=== PATIENT | male | born 1975 | race Caucasian/White ===

== ENCOUNTER 2020-04-29 11:22 | Emergency (ER) | payer SELFPAY ==
[2020-04-29 11:26] VITALS: BP 144/87; PULSE 109; RESP 16; TEMP 36.5; O2SAT 100
--- NOTE | 2020-04-29 12:09 | ED.BACK ---
HPI - Back Pain/Injury General Chief Complaint: Back Pain/Injury Stated Complaint: lower back pain Time Seen by Provider: 04/29/20 11:57 Source: patient and RN notes reviewed Mode of arrival: ambulatory Limitations: no limitations History of Present Illness HPI Narrative: Patient presents today complaining of left-sided low back pain. States he was cleaning out a cooler at work, twisted, and felt a sharp pain in his back. Pain radiates to the left buttock. Injury occurred approximately 36 hours ago. Denies numbness or tingling in the extremities or genitals. Denies any loss of bowel or bladder control. Denies any history of chronic back pain. Currently rates his pain 5/10, which increases with movement. He has been taking ibuprofen without relief. MD elicited complaint: back injury Related Data Home Medications Medication Instructions Recorded Confirmed bupropion HCl 150 mg PO QAM 04/29/20 04/29/20 lisinopril 10 mg PO DAILY 04/29/20 04/29/20 venlafaxine 37.5 mg PO DAILY 04/29/20 04/29/20 Allergies Allergy/AdvReac Type Severity Reaction Status Date / Time No Known Allergies Allergy Verified 04/29/20 11:35 Review of Systems Review of Systems: Narrative: CONSTITUTIONAL: Denies body aches, fever, chills, or sweats. EYES: Denies visual changes, redness, or discharge. ENT: Denies rhinorrhea, congestion, sore throat, or otalgia. CARDIOVASCULAR: Denies chest pain, palpitations, or edema. RESPIRATORY: Denies cough or dyspnea. GASTROINTESTINAL: Denies abdominal pain, nausea, vomiting, or diarrhea. GENITOURINARY: Denies dysuria or hematuria. SKIN: Denies rash, itching, or wounds. MUSCULOSKELETAL: Denies joint pain, or myalgia. +Left low back pain NEUROLOGIC: Denies headache, numbness, tingling, or weakness. PSYCH: Denies depression or anxiety. PMFSH Social History Social History Smoking status: Heavy tobacco smoker Alcohol intake: never Comments At time of signature, I have reviewed and agree with nursing past medical, surgical, social and family history unless otherwise noted. Please see nursing chart for further information. There is no relevant family history pertinent to the presenting complaint Exam Narrative: Exam Narrative: GENERAL: Well-appearing, well-nourished, and in no acute distress. HEAD: Normocephalic, atraumatic. EYES: EOMI. No redness or drainage. Conjunctivae normal. ENT: Mucous membranes pink and moist. NECK: Normal AROM. CHEST: No respiratory distress. MUSCULOSKELETAL: No bony tenderness of the thoracic or lumbar spine. Left lower lumbar paraspinal muscle tenderness, extending to the left SI joint. Distal sensation intact. Saddle sensation intact. Capillary refill normal. Posterior tibial pulses normal. Foot push and pulls equal and strong.Color normal bilaterally. EXTREMITIES: Normal range of motion. No edema. SKIN: Warm, dry, no rash. Capillary refill normal. Normal skin turgor. NEURO: No focal deficits. Alert and oriented x3. Gait steady. PSYCH: Normal affect. No signs of depression or anxiety. Course Vital Signs Vital signs: Vital Signs Temperature 97.7 F 04/29/20 11:26 Pulse Rate 109 H 04/29/20 11:26 Respiratory Rate 16 04/29/20 11:26 Blood Pressure 144/87 H 04/29/20 11:26 Pulse Oximetry 100 04/29/20 11:26 Temperature 97.7 F 04/29/20 11:26 Pulse Rate 109 H 04/29/20 11:26 Respiratory Rate 16 04/29/20 11:26 Blood Pressure 144/87 H 04/29/20 11:26 Pulse Oximetry 100 04/29/20 11:26 Reviewed. Pt has been instructed to follow up with his PCP regarding his elevated blood pressure today. MDM - Back Pain/Injury Differential Diagnosis Differential diagnosis: Likely lumbar radiculopathy, strain of lumbar region and thoracic back pain Critical Care Time Critical Care Time Critical Care Time: No Discharge Plan Discharge Clinical Impression: Strain of lumbar region Qualifiers: Encounter type: initial encounter Qualified Code(s)
== END 2020-04-29 12:18 | disposition home or self-care (01) ==
PROVIDERS: Emergency Provider Nurse Practitioner; PCP Nurse Practitioner Family
DX: S39.012A Strain of muscle, fascia and tendon of lower back, initial encounter (principal); X50.0XXA Overexertion from strenuous movement or load, initial encounter; F17.200 Nicotine dependence, unspecified, uncomplicated; I10 Essential (primary) hypertension; F32.9 Major depressive disorder, single episode, unspecified
CPT/HCPCS: 99213; G0463

== ENCOUNTER 2020-11-01 02:13 | Inpatient (IN) | payer SELFPAY ==
[2020-11-01] VITALS (15 sets, daily range): BP systolic 116–159; BP diastolic 61–127; PULSE 78–110; RESP 12–29; TEMP 36.3–36.9; O2SAT 94–100; BMI 23.3
--- NOTE | 2020-11-01 02:03 | PM.IMHP ---
H&P: HPI History of Present Illness Date/Time: 11/01/20 02:03 Chief Complaint: Sore throat Narrative: 45-year-old male with past medical history of depression and hypertension who presented to the ER at [facility] due to that he had initially presented to [facility] ER on the due to a sore throat. He reports that he had been having sore throat for 4 days. Initially the pain started on the left side of his neck and his left neck became swollen. Then over the next 24 hours he began having pain around the posterior portion of his neck into his right neck. Subsequently his right neck became extensively more swollen than his left. He has not had anything to eat and only minimal sips of fluid did drink in the last 4 days. He has severe difficulty swallowing even his secretions. He presented to [facility] ER on the and had a rapid strep test that was negative. He was subsequently discharged home a told he had general sore throat and was discharged with antibiotics and liquid lidocaine for pain. He arrived to [facility] ER again on 10/31/2020 with worsening of his sore throat and worsening of the swelling in his neck especially in the right side of his neck. He reports that the pain was at 8/10 in intensity at its worst. It was accompanied by pain in the back of his neck. He had subjective fevers. When he arrived to the outside ER his temperature was 99.7?. They checked a COVID swab and a influenza swab that was negative. He had blood cultures obtained that were sent. He had a CBC with a white count of 26,000, hemoglobin 15.5 platelet count 142215 with 21% neutrophils. Electrolyte panel was unremarkable with sodium of 138 potassium 4.6 chloride 99 CO2 27 BUN 16 creatinine 0.6 glucose 112 lactic acid was normal at 1.2 PT was 12.9 INR 1.[address] of the neck demonstrated an bilateral tonsillitis and tonsillar abscesses with peritonsillar inflammation and edema, right tonsillar abscess measuring 2.5 x 2.1 cm smaller left tonsillar abscess 1.3 x 0.7 cm. Tonsillar enlargement results in moderate to severe oral pharyngeal airway narrowing. There is also diffuse pharyngeal wall thickening and mucosal enhancement compatible with pharyngitis. Small amount of fluid in the retro pharyngeal space likely edema and inflammation. No loculated retropharyngeal abscess identified additional edema and inflammation extending into the peritonsillar soft tissues bilateral right greater than left including extension of inflammation about the right submandibular gland. The patient received 2 doses of Unasyn at the outside ER. He received Solu-Medrol at 4:50 p.m. and a dose of Decadron at 9:39 p.m.. He also received tranexamic acid, racemic epi, IV Benadryl, and 2 L normal saline. Evidently the ER physician the outside hospital tried to admit the patient to their ICU but and they could not admit him to the ICU as they did not have any ICU beds available. They contacted [facility] where the ENT resident refused to accept the patient unless the patient was intubated. This information was not passed on to me in report. The ER physician felt the patient did not need to be intubated as his condition was improving and so decided to call multiple hospitals in the area until the called our hospital where she talked to Dr. Peters (ENT) and Dr. Cabrera (sliver former) who agreed to accept the patient. When the patient arrived to the ICU patient was having difficulty managing his secretions. While I was in the room the patient coughed and spit up material numerous times. After multiple attempts he was able to switch while away small amount of oral secretions. He denies shortness of breath. Review of Systems Review of Systems: Narrative: 12 systems were reviewed with pertinent positives and negatives per HPI. Except as documented in the HPI, all other systems were reviewed and are negative. [facility] Past Medical History Medical History (Updated
[2020-11-01] MEDS: SODIUM CHLORIDE 0.9% IV 1,000 ML 100 ML IV CONT ×2 (02:31→10:32)
[2020-11-01] MEDS: MORPHINE SULFATE (*CRX) 2 MG/ML INJ IV PUSH ×4 (02:56→23:00)
--- NOTE | 2020-11-01 03:20 | ADMGEN ---
This patient, Elmo Pisano, was admitted to Intensive Care Unit-8 on 11/01/20 at 0155. Patient/family oriented to hospital policies and general routines including ID bracelet, bed and alarms, visiting hours, pain management, procedures, bathroom and other care routines, personal items, smoking policy, room service/diet, and visiting hours. Information on how to activate the Rapid Response Team has been discussed. Patient/Family are encouraged to report perceived risks to care and to ask questions if they do not understand what they are told or what they should do.
[2020-11-01] MEDS: methylPREDNISolone SOD SUCC 125 MG VIAL IV PUSH ×3 (04:18→17:53)
[2020-11-01 04:48] LABS: Hematocrit 40.5 % (42.0-52.0); Hemoglobin 13.2 g/dL (14.0-18.0); Mean Corpuscular HGB Conc 32.6 g/dl (32-36); Mean Corpuscular Hemoglobin 27.5 pg (26-34); Mean Corpuscular Volume 84.4 fl (80-100); Mean Platelet Volume 9.9 fl (7.4-10.4); Platelet Count Result 296 k/mm3 (150-375); White Blood Count 18.8 K/mm3 (4.5-10.0)
[2020-11-01 05:02] LABS: Anion Gap 8 mmol/L (8-16); Blood Urea Nitrogen 16 mg/dL (9-20); Calcium 8.6 mg/dL (8.4-10.2); Carbon Dioxide 27 mmol/L (22-30); Chloride 107 mmol/L (98-107); Estimated CRCL calculation 135 ml/min; Estimated Glomerular Filt Rate > 60; Glucose 151 mg/dL (75-110); Sodium 142 mmol/L (137-145)
[2020-11-01] MEDS: AMPICILLIN SULB 3 GM/NS 100 ML 3 GM/100 ML VIAL IVPB ×3 (06:03→17:58)
--- NOTE | 2020-11-01 11:06 | WPDCN ---
Assessment and Plan Assessment and plan (1) Parapharyngeal abscess: Code(s): J39.0 - Retropharyngeal and parapharyngeal abscess Status: Acute Assessment and Plan: the patient has by pharyngitis/deep neck space infections. The most concerning spaces the right parapharyngeal space. I will return this afternoon to perform flexible laryngoscopy and ensure the airways appropriate /adequate for transfer to the floor. I would then recommend transfer to the floor in observation for 24 more hours. If the patient fails to improve over the next 24 hours I would recommend a contrasted CT of tomorrow Saturday. The patient is okay for diet at this time is I do not anticipate operative intervention in the next 24 hours. Please continue IV antibiotics at this time. (2) Peritonsillar abscess: Code(s): J36 - Peritonsillar abscess Status: Acute HPI Data of Consult Date/Time: 11/01/20 11:06 Requesting Physician: William Juan MD Primary Care Provider: Keisha Guadarrama, DIAL BRUSHER Consult Narrative Narrative: Elmo Pisano is a 45 year old male With a current pharyngeal / neck infection. Patient reports feeling ill for approximately 1 week progressing over the past 24 hours. He was transferred from [place] with a contrasted CT demonstrating bilateral peritonsillar abscesses. As well as extension of the right peritonsillar abscess into the right parapharyngeal space and bilateral neck inflammation /fat stranding. Previous white count 26 currently 18. The patient reports feeling much improved over the past 24 hours. Currently receiving IV antibiotics as well as steroids. Review of Systems Constitutional: Constitutional: Reports as per HPI ENT: Reports as per HPI, Reports dysphagia and Reports odynophagia [facility] Past Medical History Medical History (Updated 11/01/20 @ 11:09 by Silas Peters MD) Depression Essential hypertension Surgical History Surgical History (Updated 11/01/20 @ 04:04 by Salina Robin DO) No pertinent past surgical history Family History Family History (Updated 11/01/20 @ 04:05 by Salina Robin DO) Father , Age 49 Acute myocardial infarction Mother Unknown family medical history Social History Social History (Updated 11/01/20 @ 04:07 by Salina Robin DO) Social History: He lives with his 21 years. They have 2 sons 1 of which deliver the home. He has smoked 2 packs per day since he was 15 years old. He drinks a 5th of hard liquor each weekend. He occasionally uses marijuana. He works at [employer]. Smoking packs per day: 2 Smoking cigarettes per day: 40.0 Years smoked: 30 Smoking pack-years: 60.00 Smoking status: Current every day smoker Tobacco type: cigarettes Alcohol intake: current Drinks per week: 1 Substance use: current Substance use type: marijuana Spiritual care concerns: No Meds Home Medications and Allergies Home Medications Medication Instructions Recorded Confirmed Type bupropion HCl 150 mg PO QAM 04/29/20 11/01/20 History lisinopril 10 mg PO DAILY 04/29/20 11/01/20 History albuterol sulfate 2 puff INHALATION BID PRN 11/01/20 11/01/20 History Allergies Allergy/AdvReac Type Severity Reaction Status Date / Time No Known Allergies Allergy Verified 04/29/20 11:35 Vital Signs Vital Signs - 24 hr 11/01/20 02:01 11/01/20 02:44 11/01/20 03:36 Temperature 36.9 C Pulse Rate 96 100 97 Respiratory Rate 18 21 H 14 Blood Pressure 126/82 Pulse Oximetry 97 97 98 11/01/20 04:00 11/01/20 06:00 11/01/20 06:01 Temperature 36.9 C Pulse Rate 94 90 86 Respiratory Rate 13 15 Blood Pressure 116/73 152/61 H Pulse Oximetry 100 94 11/01/20 08:00 11/01/20 10:00 Temperature 36.3 C L Pulse Rate 98 85 Respiratory Rate 29 H 17 Blood Pressure 121/88 116/65 Pulse Oximetry 97 99 Exam HENMT: Other: The patient's oral examination as well as to
--- NOTE | 2020-11-01 12:40 | WPDCNINT ---
Assessment and Plan Assessment and plan (1) Peritonsillar abscess: Code(s): J36 - Peritonsillar abscess Status: Acute Assessment and Plan: Patient will be continued on Unasyn 3 g q.6 hours scheduled. Will continue scheduled IV Solu-Medrol. Dr. Peters has evaluate the patient appreciated input. He did a flexible laryngoscope at bedside and found significant airway swelling and abscess in the epiglottic area. He recommended the patient remain in the ICU overnight, with repeat laryngeal scope in a.m. depending the results of that procedure will determine if the patient goes to surgery. He recommends the patient have a regular diet until after evaluation in the a.m.. (2) Parapharyngeal abscess: Code(s): J39.0 - Retropharyngeal and parapharyngeal abscess Status: Acute Assessment and Plan: Plan as discussed above. (3) Sepsis: Qualifiers: Sepsis type: sepsis due to unspecified organism Sepsis acute organ dysfunction status: without acute organ dysfunction Qualified Code(s): A41.9 - Sepsis, unspecified organism Code(s): A41.9 - Sepsis, unspecified organism Status: Acute Assessment and Plan: Present on admission with leukocytosis tachycardia and peritonsillar abscess. Patient remains mildly tachycardic but leukocytosis is improving. Antibiotics will be continued. Blood cultures are pending. Additional Plan The patient's case was discussed with hospitalist and ENT. The patient was updated as to clinical course and plan of care. 35 minutes spent in critical care activities. Due to a high probability of clinically significant, life threatening deterioration, the patient required my highest level of preparedness to intervene emergently and I personally spent this critical care time directly and personally managing the patient. This critical care time included obtaining a history; examining the patient; pulse oximetry; ordering and review of studies; arranging urgent treatment with development of a management plan; evaluation of patient's response to treatment; frequent reassessment; and discussions with other providers. It was exclusive of separately billable procedures and treating other patients and teaching time. Please see Assessment and Plan section and the rest of the note for further information on patient assessment and treatment. Automatic Machine Attendant Consult Note Consult date: 11/01/20 Time Seen: 11:00 HPI: Elmo Pisano is a 45 year old male with a past medical history of depression and hypertensionwho presented to the ER at [facility] due to that he had initially presented to [facility] ER on the due to a sore throat. He reports that he had been having sore throat for 4 days. Initially, the pain started on the left side of his neck and then the next day the right side of his neck started to swell over the next 24 hours. Currently the right side of his neck is much more swollen than his left. He has not had anything to eat and only minimal sips of fluid did drink in the last 4 days. He has severe difficulty swallowing even his secretions. He presented to [facility] ER on the and had a rapid strep test that was negative. He was subsequently discharged home a told he had general sore throat and was discharged with antibiotics and liquid lidocaine for pain. He arrived to [facility] ER again on 10/31/2020 with worsening of his sore throat and worsening of the swelling. He reports that the pain was at 8/10 in intensity at its worst. It was accompanied by pain in the back of his neck. He had subjective fevers. When he arrived to the outside ER his temperature was 99.7?. They checked a COVID swab and a influenza swab that was negative. He had blood cultures obtained that were sent. He had a CBC with a white count of 26,00. CT of the soft tissues of the neck demonstrated an bilateral tonsillitis and tonsillar abscesses with peritonsillar inflamm
--- NOTE | 2020-11-01 13:13 | WPDPROCEDUR ---
Procedures Laryngoscopy Sedation/Analgesia: other ( Afrin and lidocaine) Technique: indirect nasal laryngoscopy Complications: none Post-procedure exam: awake, alert Laryngoscopy Comments: patient had bilaterally normal sinonasal passages normal nasopharyngeal region the pharyngeal examination was concerning and significant for significant right-sided edema there is a vallecular cyst /collection of purulence as well as epiglottic edema the laryngeal exam and hypopharyngeal examination is completely normal
--- NOTE | 2020-11-01 17:15 | PM.IMPN ---
Progress Note: A&P Assessment and Plan (1) Peritonsillar abscess: Code(s): J36 - Peritonsillar abscess Status: Acute Assessment and Plan: Patient presented multiple times due to continued throat pain. CT of the neck performed showing bilateral tonsillitis and tonsillar abscesses with peritonsillar inflammation and edema, right tonsillar abscess measuring 2.5 x 2.1 cm with smaller left tonsillar abscess 1.3 x 0.7 cm. Tonsillar enlargement results in moderate to severe oral pharyngeal airway narrowing. Patient was transferred to our facility. He was started on Unasyn 3 g q.6 hours scheduled and scheduled IV Solu-Medrol. Dr. Peters has evaluate the patient and appreciate his input. He did a flexible laryngoscope at bedside today and found right-sided pharyngeal edema, vallecular cyst versus collection of purulence as well as epiglottic edema. Patient toelrating clear liquid diet and has been weaned off O2. Contineu to monitor in ICU overnight with plans for repeat laryngeal scope in a.m. Depending on the results of that procedure will determine if the patient goes to surgery. (2) Parapharyngeal abscess: Code(s): J39.0 - Retropharyngeal and parapharyngeal abscess Status: Acute Assessment and Plan: Plan as discussed above. (3) Sepsis: Qualifiers: Sepsis acute organ dysfunction status: without acute organ dysfunction Sepsis type: sepsis due to unspecified organism Qualified Code(s): A41.9 - Sepsis, unspecified organism Code(s): A41.9 - Sepsis, unspecified organism Status: Acute Assessment and Plan: Present on admission with leukocytosis and tachycardia related to the peritonsillar abscess. Patient remains mildly tachycardic but leukocytosis is improving. BCx pending. Contineu IV abx and steroids. (4) Essential hypertension: Code(s): I10 - Essential (primary) hypertension Status: Inactive Assessment and Plan: Patient's blood pressure was reviewed on 11/01 Blood pressure remains mostly well controlled. Lisinopril on hiold for now. (5) Depression: Code(s): F32.9 - Major depressive disorder, single episode, unspecified Status: Inactive Assessment and Plan: Mood stable. Continue to hold bupropion. (6) DVT prophylaxis: Code(s): Z29.9 - Encounter for prophylactic measures, unspecified Status: Acute Assessment and Plan: SCDs Subjective Date/time seen: 11/01/20 17:15 Interval history: 45yo male transferred from an OSH for peritonsillar abscess. Neck swelling much better today. Toelrating liquid diet. Feels warm. Denies feeling SOB. Exam Narrative: Exam Narrative: AF 98.1 131/83 90 12 97% 2L Gen - NARD HEENT - tonsillar erythema Neck - tender and swollen right>left submandibular glands. Chest - CTA bilaterally, nml RR CV - RRR S1/S2 Abd - Soft, NT/ND, Positive BS Ext - No pedal edema Neuro - Alert and oriented. Nonfocal exam. Psych - Nml mood and affect Skin - Warm and dry Objective Data Vital Signs Vital Signs: Vital Signs - 24 hr 11/01/20 02:01 11/01/20 02:44 11/01/20 03:36 Temperature 98.5 F Pulse Rate 96 100 97 Respiratory Rate 18 21 H 14 Blood Pressure 126/82 Pulse Oximetry 97 97 98 11/01/20 04:00 11/01/20 06:00 11/01/20 06:01 Temperature 98.5 F Pulse Rate 94 90 86 Respiratory Rate 13 15 Blood Pressure 116/73 152/61 H Pulse Oximetry 100 94 11/01/20 08:00 11/01/20 10:00 11/01/20 12:00 Temperature 97.3 F L 98.0 F Pulse Rate 98 85 110 H Respiratory Rate 29 H 17 18 Blood Pressure 121/88 116/65 128/77 Pulse Oximetry 97 99 98 11/01/20 14:00 11/01/20 16:00 Temperature 98.1 F Pulse Rate 82 90 Respiratory Rate 13 12 Blood Pressure 159/127 H 131/83 Pulse Oximetry 99 97 Intake/Output Intake/Output: Intake & Output 10/29/20 10/30/20 10/31/20 11/01/20 23:59 23:59 23:59 23:59 Intake Total 1970 Output Tot
[2020-11-01] MEDS: SODIUM CHLORIDE 0.9% IV 1,000 ML 70 ML IV CONT (17:51)
[2020-11-02] VITALS (10 sets, daily range): BP systolic 113–139; BP diastolic 74–88; PULSE 72–101; RESP 10–19; TEMP 36.3–36.9; O2SAT 95–100
[2020-11-02] MEDS: AMPICILLIN SULB 3 GM/NS 100 ML 3 GM/100 ML VIAL IVPB ×4 (00:02→18:22)
[2020-11-02] MEDS: methylPREDNISolone SOD SUCC 125 MG VIAL IV PUSH ×2 (00:03→05:36)
[2020-11-02 05:33] LABS: Basophils Percent Auto 0.1 % (0.2-1.2); Hematocrit 39.2 % (42.0-52.0); Hemoglobin 12.8 g/dL (14.0-18.0); Immature Granulocyte Absolute 0.18 K/mm3 (0.00-0.031); Immature Granulocyte Percent A 0.8 % (0-0.5); Lymphocytes Absolute Auto 1.34 K/mm3 (0.9-3.2); Lymphocytes Percent Auto 5.9 % (18.3-44.2); Mean Corpuscular HGB Conc 32.7 g/dl (32-36); Mean Corpuscular Hemoglobin 27.3 pg (26-34); Mean Corpuscular Volume 83.6 fl (80-100); Mean Platelet Volume 10.2 fl (7.4-10.4); Monocytes Absolute Auto 0.9 K/mm3 (0.1-0.6); Monocytes Percent Auto 3.9 % (2.6-8.5); Neutrophils Absolute Auto 20.2 K/mm3 (1.3-6.7); Neutrophils Percent Auto 89.3 % (45.5-73.1); Platelet Count Result 337 k/mm3 (150-375); Red Blood Count 4.69 M/mm3 (4.6-6.20); Red Cell Distribution Width 13.8 % (11.5-14.5); White Blood Count 22.6 K/mm3 (4.5-10.0)
[2020-11-02 05:59] LABS: Albumin Level 3.4 g/dL (3.5-5.1); Anion Gap 4 mmol/L (8-16); Blood Urea Nitrogen 17 mg/dL (9-20); Calcium 8.4 mg/dL (8.4-10.2); Carbon Dioxide 30 mmol/L (22-30); Chloride 108 mmol/L (98-107); Estimated CRCL calculation 159 ml/min; Estimated Glomerular Filt Rate > 60; Glucose 156 mg/dL (75-110); Magnesium 2.2 mg/dL (1.6-2.3); Phosphorus 3.9 mg/dL (2.5-4.5); Potassium 4.4 mmol/L (3.4-5.0); Sodium 142 mmol/L (137-145)
--- NOTE | 2020-11-02 09:07 | WPDINTPN ---
Progress Note: A&P Assessment and Plan (1) Peritonsillar abscess: Code(s): J36 - Peritonsillar abscess Status: Acute Assessment and Plan: CT of the neck which was done in outside facility showing bilateral tonsillitis and tonsillar abscesses with peritonsillar inflammation and edema, right tonsillar abscess measuring 2.5 x 2.1 cm with smaller left tonsillar abscess 1.3 x 0.7 cm. Tonsillar enlargement results in moderate to severe oral pharyngeal airway narrowing. Continue Unasyn at current dose for now. Follow cultures. ENT Dr. Peters has evaluate the patient and appreciate his input. He did a flexible laryngoscope at bedside today and found right-sided pharyngeal edema, vallecular cyst versus collection of purulence as well as epiglottic edema. He has been re-evaluated at the bedside today by ENT service and has found decreasing edema. Recommended to stop steroid. Patient tolerating clear liquid diet. May potentially advanced sometime later today. (2) Parapharyngeal abscess: Code(s): J39.0 - Retropharyngeal and parapharyngeal abscess Status: Acute Assessment and Plan: Plan as discussed above. (3) Sepsis: Qualifiers: Sepsis acute organ dysfunction status: without acute organ dysfunction Sepsis type: sepsis due to unspecified organism Qualified Code(s): A41.9 - Sepsis, unspecified organism Code(s): A41.9 - Sepsis, unspecified organism Status: Acute Assessment and Plan: Present on admission with leukocytosis and tachycardia related to the peritonsillar abscess. BCx pending. Contineu IV abx and steroids. (4) Essential hypertension: Code(s): I10 - Essential (primary) hypertension Status: Inactive Assessment and Plan: Blood pressure remains mostly well controlled. Lisinopril on hold for now. (5) Depression: Code(s): F32.9 - Major depressive disorder, single episode, unspecified Status: Inactive Assessment and Plan: Mood stable. Continue to hold bupropion. (6) DVT prophylaxis: Code(s): Z29.9 - Encounter for prophylactic measures, unspecified Status: Acute Assessment and Plan: SCDs Additional Plan The patient's case was discussed with hospitalist and ENT. The patient was updated as to clinical course and plan of care. He will be downgraded to floor/IMU status later today. Full code Subjective Date/time seen: 11/02/20 09:07 He is feeling much better with decreased pain. He is able to tolerate full liquid diet and wants to eat solid food. He denied have any significant shortness of breath. He is able to swallow without any difficulty and is not having any drooling of saliva. ENT has evaluated him at the bedside and upper airway inspection is showing decrease in edema. Recommended to stop steroid. Denied have any fever and chills. WBC count is trending up but likely as a result of steroid. Interval history: 45yo male transferred from an OSH for peritonsillar abscess. Review of Systems Review of Systems: All systems reviewed & are unremarkable except as noted in HPI and below Exam Narrative: Exam Narrative: AF 98.1 131/83 90 12 97% 2L Gen - NARD HEENT - tonsillar erythema Neck - tender and swollen right>left submandibular glands. Chest - CTA bilaterally, nml RR CV - RRR S1/S2 Abd - Soft, NT/ND, Positive BS Ext - No pedal edema Neuro - Alert and oriented. Nonfocal exam. Psych - Nml mood and affect Skin - Warm and dry HENMT: Other: His neck exam is consistent with bilateral edema right greater than left with some pain to palpation. Overall no overt fluctuance is identified. Objective Data Vital Signs Vital Signs: Vital Signs - 24 hr 11/01/20 10:00 11/01/20 12:00 11/01/20 14:00 Temperature 36.7 C Pulse Rate 85 110 H 82 Respiratory Rate 17 18 13 Blood Pressure 116/65 128/77 159/127 H Pulse Oximetry 99 98 99
--- NOTE | 2020-11-02 09:25 | PM.PNGS ---
Progress Note: A&P Assessment and Plan (1) Peritonsillar abscess: Code(s): J36 - Peritonsillar abscess Status: Acute Assessment and Plan: clinically the patient appears to be improving. The fiberoptic examination was significant for pharyngeal edema and epiglottic edema with a vallecular collection of purulence and/or cyst. Overall the fiberoptic examination is improving. Given the patient's clinical improvement he he could be observed on the floor if okay per ICU. I would recommend continued IV antibiotics. Would discontinue steroids. I would recommend a CBC tomorrow morning. Should the patient not improve drastically or should the CBC not improve I would recommend contrasted scan of the neck to Look for any occult abscess which may be present. I would also recommended speech therapy consult to increase the patient's diet. If the patient worsens in anyway clinically I would recommend restarting steroids and obtaining a CT with contrast of the neck. (2) Parapharyngeal abscess: Code(s): J39.0 - Retropharyngeal and parapharyngeal abscess Status: Acute Subjective Subjective Date/Time Seen: 11/02/20 09:25 patient reports overall feeling better this a.m.. Continues to report neck pain mostly right-sided. White count increased from 18-22 overnight. Exam Neck: Other: Overall improving appearance of neck decreasing right-sided edema increased mobility no fluctuance her edema which is palpable. All the laryngeal framework muscles and glands are palpable. Oropharynx is normal tonsils are normal floor mouth is soft Objective Data Vital Signs Vital Signs: Vital Signs - 24 hr 11/01/20 10:00 11/01/20 12:00 11/01/20 14:00 Temperature 36.7 C Pulse Rate 85 110 H 82 Respiratory Rate 17 18 13 Blood Pressure 116/65 128/77 159/127 H Pulse Oximetry 99 98 99 11/01/20 16:00 11/01/20 18:00 11/01/20 19:30 Temperature 36.7 C Pulse Rate 89 103 H 97 Respiratory Rate 12 12 15 Blood Pressure 131/83 122/80 Pulse Oximetry 97 96 99 11/01/20 20:00 11/01/20 22:00 11/02/20 00:00 Temperature 36.7 C 36.9 C Pulse Rate 101 H 88 101 H Respiratory Rate 16 13 17 Blood Pressure 138/76 118/76 135/88 Pulse Oximetry 97 100 98 11/02/20 00:38 11/02/20 02:00 11/02/20 03:36 Temperature Pulse Rate 77 72 82 Respiratory Rate 13 13 19 Blood Pressure 119/84 Pulse Oximetry 100 97 98 11/02/20 04:00 11/02/20 06:00 11/02/20 08:00 Temperature 36.5 C 36.3 C L Pulse Rate 77 73 81 Respiratory Rate 15 12 10 L Blood Pressure 119/75 113/76 130/88 Pulse Oximetry 96 95 97 11/02/20 09:25 Temperature Pulse Rate 101 H Respiratory Rate Blood Pressure Pulse Oximetry Intake/Output Intake/Output: Intake & Output 10/30/20 10/31/20 11/01/20 11/02/20 23:59 23:59 23:59 23:59 Intake Total 4360 1270 Output Total 1900 1200 Balance 2460 70 Meds/Results Medications: Active Medications Generic Name Dose Route Start Last Admin Trade Name Freq PRN Reason Stop Dose Admin Acetaminophen 650 mg 11/01/20 17:37 Acetaminophen Elixir 325 Mg/10.15 Ml Udc PO Q6H PRN Pain 1 - 3 or Fever Sodium Chloride 1,000 mls @ 70 mls/hr 11/01/20 02:15 11/01/20 17:51 Normal Saline Iv IV CONT 70 mls/hr .[id number] PRASHANT Administration Ampicillin Sodium/Sulbactam Sodium 3 gm in 100 mls @ 200 mls/hr 11/01/20 06:00 11/02/20 06:06 Unasyn 3 Gm/Ns 100 Ml IVPB Infused Q6HR PRASHANT Infusion Morphine Sulfate 2 mg 11/01/20 02:13 11/01/20 23:00 Morphine Sulfate (*Crx) 2 Mg/Ml Inj IV PUSH 2 mg Q4H PRN Administration Pain Rated 7-10 Ondansetron HCl 4 mg 11/01/20 02:13 Ondansetron Inj 4 Mg/2 Ml Vial IV PUSH Q6H PRN Nausea And Vomiting Labs Labs: Laboratory Results - last 24 hr 11/02/20 11/02/20 04:24 04:24 WBC 22.6 H RBC 4.69 Hgb 12.8 L Hct 39.2 L MCV 83.6 MCH 27.3 MCHC 32.7 RDW 13.8 Plt Count 337 MPV 10.2 Immatur
--- NOTE | 2020-11-02 09:28 | WPDPROCEDUR ---
Procedures Laryngoscopy Laryngoscopy Comments: Afrin lidocaine were applied to the right nasal passage. The scope 3.4 mm flexible scope was passed. The exam was significant for parapharyngeal edema as well as epiglottic edema mild erythema no purulence seen other than a vallecular cyst which could also represent a collection purulence. Overall the exam is somewhat improved from yesterday's flexible fiberoptic examination.
--- NOTE | 2020-11-02 10:33 | PM.IMPN ---
Progress Note: A&P Assessment and Plan (1) Peritonsillar abscess: Code(s): J36 - Peritonsillar abscess Status: Acute Assessment and Plan: Patient presented multiple times due to continued throat pain to the OSH. CT of the neck performed showing bilateral tonsillitis and tonsillar abscesses with peritonsillar inflammation and edema, right tonsillar abscess measuring 2.5 x 2.1 cm with smaller left tonsillar abscess 1.3 x 0.7 cm. Tonsillar enlargement results in moderate to severe oral pharyngeal airway narrowing. Patient was transferred to our facility. He was started on Unasyn 3 g q.6 hours scheduled and scheduled IV Solu-Medrol. Dr. Peters has evaluate the patient and appreciate his input. He did a flexible laryngoscope at bedside 11/01 and found right-sided pharyngeal edema, vallecular cyst versus collection of purulence as well as epiglottic edema. Repeat scope today showing improvement. Discussed with Dr Peters. Plan to advance diet. Steroids stopped. Will stop IV fluids. Okay to move out of ICU. He plans to repeat scope in the morning. (2) Parapharyngeal abscess: Code(s): J39.0 - Retropharyngeal and parapharyngeal abscess Status: Acute Assessment and Plan: Plan as discussed above. (3) Sepsis: Qualifiers: Sepsis acute organ dysfunction status: without acute organ dysfunction Sepsis type: sepsis due to unspecified organism Qualified Code(s): A41.9 - Sepsis, unspecified organism Code(s): A41.9 - Sepsis, unspecified organism Status: Acute Assessment and Plan: Present on admission with leukocytosis and tachycardia related to the peritonsillar abscess. Symptoms improving. WBC higher but felt related to the steroids. BCx pending. Continue IV abx; steroids stopped. (4) Essential hypertension: Code(s): I10 - Essential (primary) hypertension Status: Inactive Assessment and Plan: Patient's blood pressure was reviewed on 11/02 Blood pressure remains well controlled. Will resume lisinopril (5) Depression: Code(s): F32.9 - Major depressive disorder, single episode, unspecified Status: Inactive Assessment and Plan: Mood stable. Okay to resume bupropion. (6) Tobacco abuse: Code(s): Z72.0 - Tobacco use Status: Acute Assessment and Plan: Patient was educated about the benefits of smoking cessation. (7) DVT prophylaxis: Code(s): Z29.9 - Encounter for prophylactic measures, unspecified Status: Acute Assessment and Plan: SCDs Subjective Date/time seen: 11/02/20 10:33 Interval history: 45yo male transferred from an OSH for peritonsillar abscess. No problems overnight. Odynophagia is improved. Neck pain is improved as well. Slept well. No chest pain. Exam Narrative: Exam Narrative: AF 97.4 130/88 101 10 97% ra Gen - NARD HEENT - no significnat oropharyngeal erythema Neck - right>left submandibular glands less tender and less edema Chest - CTA bilaterally, nml RR CV - RRR S1/S2; tele showing no significant dysrhythmias Abd - Soft, NT/ND, Positive BS Ext - No pedal edema Neuro - Alert and oriented. Nonfocal exam. Psych - Nml mood and affect Skin - Warm and dry Objective Data Vital Signs Vital Signs: Vital Signs - 24 hr 11/01/20 12:00 11/01/20 14:00 11/01/20 16:00 Temperature 98.0 F 98.1 F Pulse Rate 110 H 82 89 Respiratory Rate 18 13 12 Blood Pressure 128/77 159/127 H 131/83 Pulse Oximetry 98 99 97 11/01/20 18:00 11/01/20 19:30 11/01/20 20:00 Temperature 98.0 F Pulse Rate 103 H 97 101 H Respiratory Rate 12 15 16 Blood Pressure 122/80 138/76 Pulse Oximetry 96 99 97 11/01/20 22:00 11/02/20 00:00 11/02/20 00:38 Temperature 98.5 F Pulse Rate 88 101 H 77 Respiratory Rate 13 17 13 Blood Pressure 118/76 135/88 Pulse Oximetry 100 98 100 11/02/20 02:00 11/02/20 03:36 11/02/20 04:00 Temperature 97.7 F Pul
[2020-11-03] VITALS: BP 124/91; PULSE 86; RESP 17; TEMP 36.7; O2SAT 97
[2020-11-03] MEDS: AMPICILLIN SULB 3 GM/NS 100 ML 3 GM/100 ML VIAL IVPB ×4 (00:08→18:05)
[2020-11-03] MEDS: MORPHINE SULFATE (*CRX) 2 MG/ML INJ IV PUSH ×2 (00:10→13:09)
[2020-11-03 05:46] LABS: Hematocrit 34.9 % (42.0-52.0); Hemoglobin 11.3 g/dL (14.0-18.0); Mean Corpuscular HGB Conc 32.4 g/dl (32-36); Mean Corpuscular Hemoglobin 26.8 pg (26-34); Mean Corpuscular Volume 82.9 fl (80-100); Mean Platelet Volume 9.8 fl (7.4-10.4); Platelet Count Result 328 k/mm3 (150-375); Red Blood Count 4.21 M/mm3 (4.6-6.20); Red Cell Distribution Width 13.6 % (11.5-14.5); White Blood Count 15.1 K/mm3 (4.5-10.0)
[2020-11-03 05:54] LABS: Anion Gap 1 mmol/L (8-16); Blood Urea Nitrogen 19 mg/dL (9-20); Calcium 8.2 mg/dL (8.4-10.2); Carbon Dioxide 33 mmol/L (22-30); Chloride 106 mmol/L (98-107); Estimated CRCL calculation 117 ml/min; Estimated Glomerular Filt Rate > 60; Glucose 92 mg/dL (75-110); Sodium 140 mmol/L (137-145)
[2020-11-03 08:00] VITALS: BP 136/96; PULSE 76; RESP 22; TEMP 36.6; O2SAT 100
--- NOTE | 2020-11-03 09:02 | PM.PNGS ---
Progress Note: A&P Assessment and Plan (1) Peritonsillar abscess: Code(s): J36 - Peritonsillar abscess Status: Acute Assessment and Plan: The patient continues to have edema and the airway noted on flexible laryngoscopy. Although I still believe he is reasonable for observation on the floor. Given the patient's decrease in white count an overall improvement should the patient desire to go home and the primary team deemed that reasonable I would agree that that it is reasonable. If the patient worsens in any way I have asked him to return to the emergency room. I would like the patient to follow up with me Saturday for further examination. He continues to have a vallecular collection of purulence versus cyst which I would attempt to pop in the office. Should he remain inpatient I would attempt to pop it in the hospital tomorrow Saturday. This would be attempted at bedside. Please discharge the patient, when deemed reasonable for discharge on 10 days of antibiotics. If Augmentin I would recommend 875/125 b.i.d. or of clindamycin I would recommend a 300 mg t.i.d. (2) Parapharyngeal abscess: Code(s): J39.0 - Retropharyngeal and parapharyngeal abscess Status: Acute Subjective Subjective Date/Time Seen: 11/03/20 09:02 The patient overall reports feeling improved. White count is down from 22 to 15. Exam Neck: Other: Improved edema relatively normal appearing neck framework is palpable no induration or fluctuance noted. More tender on the right-sided deep palpation. Objective Data Vital Signs Vital Signs: Vital Signs - 24 hr 11/02/20 09:25 11/02/20 16:00 11/02/20 20:00 Temperature 36.3 C L Pulse Rate 101 H 82 85 Respiratory Rate 15 14 Blood Pressure 139/74 Pulse Oximetry 100 99 11/03/20 00:00 11/03/20 08:00 Temperature 36.7 C 36.6 C Pulse Rate 86 76 Respiratory Rate 17 22 H Blood Pressure 124/91 H 136/96 H Pulse Oximetry 97 100 Intake/Output Intake/Output: Intake & Output 10/31/20 11/01/20 11/02/20 11/03/20 23:59 23:59 23:59 23:59 Intake Total 4360 4450 700 Output Total 1900 2100 1000 Balance 2460 2350 -300 Meds/Results Medications: Active Medications Generic Name Dose Route Start Last Admin Trade Name Freq PRN Reason Stop Dose Admin Acetaminophen 650 mg 11/01/20 17:37 Acetaminophen Elixir 325 Mg/10.15 Ml Udc PO Q6H PRN Pain 1 - 3 or Fever Albuterol 2 puff 11/02/20 10:39 Albuterol Sulfate (*Sp) Aerosol 1 Puff INHALATION BID PRN sob Bupropion HCl 150 mg 11/03/20 09:00 Bupropion Hcl Xl (24 Hr) 150 Mg Tabcr PO QAM PRASHANT Ampicillin Sodium/Sulbactam Sodium 3 gm in 100 mls @ 200 mls/hr 11/01/20 06:00 11/03/20 06:12 Unasyn 3 Gm/Ns 100 Ml IVPB Infused Q6HR PRASHANT Infusion Lisinopril 10 mg 11/03/20 09:00 Lisinopril 10 Mg Tablet PO DAILY PRASHANT Morphine Sulfate 2 mg 11/01/20 02:13 11/03/20 00:10 Morphine Sulfate (*Crx) 2 Mg/Ml Inj IV PUSH 2 mg Q4H PRN Administration Pain Rated 7-10 Ondansetron HCl 4 mg 11/01/20 02:13 Ondansetron Inj 4 Mg/2 Ml Vial IV PUSH Q6H PRN Nausea And Vomiting Labs Labs: Laboratory Results - last 24 hr 11/03/20 11/03/20 04:22 04:22 WBC 15.1 H RBC 4.21 L Hgb 11.3 L Hct 34.9 L MCV 82.9 MCH 26.8 MCHC 32.4 RDW 13.6 Plt Count 328 MPV 9.8 Sodium 140 Potassium 4.0 Chloride 106 Carbon Dioxide 33 H Anion Gap 1 L BUN 19 Creatinine 0.70 Estim Creat Clear Calc 117 Estimated GFR > 60 Glucose 92 Calcium 8.2 L Quality VTE Prophylaxis VTE prophylaxis: mechanical ordered
--- NOTE | 2020-11-03 09:23 | WPDPROCEDUR ---
Procedures Laryngoscopy Laryngoscopy Comments: topical Afrin and lidocaine applied to the bilateral nasal passages. The 3.4 flexible scope was inserted in the right sinonasal passage. Overall improving edema of the supraglottic and pharyngeal airway the patient continues to have some epiglottic and right-sided pharyngeal edema as well as a vallecular cyst or collection of purulence which is now increasing in size with the decreasing edema surrounding it.
[2020-11-03] MEDS: buPROPion HCL XL (24 HR) 150 MG TABCR PO (09:51)
[2020-11-03] MEDS: lisinopriL 10 MG TABLET PO (09:51)
--- NOTE | 2020-11-03 11:56 | PM.IMPN ---
Progress Note: A&P Assessment and Plan (1) Peritonsillar abscess: Code(s): J36 - Peritonsillar abscess Status: Acute Assessment and Plan: Patient presented to OSH for throat pain. CT of the neck performed showing bilateral tonsillitis and tonsillar abscesses with peritonsillar inflammation and edema, right tonsillar abscess measuring 2.5 x 2.1 cm with smaller left tonsillar abscess 1.3 x 0.7 cm. Tonsillar enlargement resulting in moderate to severe oral pharyngeal airway narrowing. Patient was transferred to our facility. He was started on Unasyn 3 g q.6 hours scheduled and scheduled IV Solu-Medrol. Dr. Peters has evaluate the patient and appreciate his input. He did a flexible laryngoscope at bedside 11/01 and found right-sided pharyngeal edema, vallecular cyst versus collection of purulence as well as epiglottic edema. Repeat scope 11/02 showing improvement. Diet was advanced and steroids stopped 11/02. Repeat scope this morning showing overall improving edema of the supraglottic and pharyngeal airway; the patient continues to have some epiglottic and right-sided pharyngeal edema as well as a vallecular cyst or collection of purulence which is now increasing in size with the decreasing edema surrounding it. Plan for re-evaluation later today with repeat scope. Continue IV abx. (2) Parapharyngeal abscess: Code(s): J39.0 - Retropharyngeal and parapharyngeal abscess Status: Acute Assessment and Plan: Plan as discussed above. (3) Sepsis: Qualifiers: Sepsis acute organ dysfunction status: without acute organ dysfunction Sepsis type: sepsis due to unspecified organism Qualified Code(s): A41.9 - Sepsis, unspecified organism Code(s): A41.9 - Sepsis, unspecified organism Status: Acute Assessment and Plan: Present on admission with leukocytosis and tachycardia related to the peritonsillar abscess. Symptoms improving. WBC better. BCx NGTD. Continue IV abx.. (4) Essential hypertension: Code(s): I10 - Essential (primary) hypertension Status: Inactive Assessment and Plan: Patient's blood pressure was reviewed on 11/03 Blood pressure remains reasonably well controlled. Continue lisinopril (5) Depression: Code(s): F32.9 - Major depressive disorder, single episode, unspecified Status: Inactive Assessment and Plan: More irritable currently. Continue bupropion. (6) Tobacco abuse: Code(s): Z72.0 - Tobacco use Status: Acute Assessment and Plan: Patient was educated about the benefits of smoking cessation. He refuses patch (7) DVT prophylaxis: Code(s): Z29.9 - Encounter for prophylactic measures, unspecified Status: Acute Assessment and Plan: SCDs Subjective Date/time seen: 11/03/20 11:56 Interval history: 45yo male transferred from an OSH for peritonsillar abscess. Slept well last night. Feels antsy today wanting to go on smoke. He refuses nicotine patch. Eating okay. Still with odynophagia worse with certain foods. Pain overall is improved Exam Narrative: Exam Narrative: AF 97.9 136/96 76 22 100% ra Gen - NARD Chest - CTA bilaterally, nml RR CV - RRR S1/S2 Abd - Soft, NT/ND, Positive BS Ext - No pedal edema Psych - antsy and annoyed Skin - Warm and dry Objective Data Vital Signs Vital Signs: Vital Signs - 24 hr 11/02/20 16:00 11/02/20 20:00 11/03/20 00:00 Temperature 97.4 F L 98.1 F Pulse Rate 82 85 86 Respiratory Rate 15 14 17 Blood Pressure 139/74 124/91 H Pulse Oximetry 100 99 97 11/03/20 08:00 Temperature 97.9 F Pulse Rate 76 Respiratory Rate 22 H Blood Pressure 136/96 H Pulse Oximetry 100 Intake/Output Intake/Output: Intake & Output 10/31/20 11/01/20 11/02/20 11/03/20 23:59 23:59 23:59 23:59 Intake Total 4360 4450 1060 Output Total 1900 2100 1000 Balance 2460 2350 60 Meds/Results Medications: Activ
--- NOTE | 2020-11-03 14:16 | PC.NURSE ---
1400-PATIENT TRANSFERED TO ROOM 302. REPORT GIVEN TO ADDIS RAMOS. ALL QUESTIONS ANSWERED. BELONGINGS SENT.
[2020-11-03 14:18] VITALS: BP 128/75; PULSE 75; RESP 18; TEMP 36.6; O2SAT 99
--- NOTE | 2020-11-03 14:32 | PC.NURSE ---
This patient, Elmo Pisano, was received from ICU8 on 11/03/20 at 1418. Patient/family oriented to unit policies and routines
--- NOTE | 2020-11-03 18:21 | WPDPROCEDUR ---
Procedures Abscess I/D Comments: Transoral I and D. LTA used to anesthetize airway. Tongue grabbed with 4x4. 30 degree rigid scope reversed. Abscess visualized. 20 gauge needle utilized to drain abscess. Bleeding acceptable. Patient tolerated the procedure well.
--- NOTE | 2020-11-03 18:30 | PM.DS ---
DS: Admitting Diagnosis Admitting Diagnosis Admitting Diagnosis: Peritonsillar abscess DS: Discharge Diagnosis Discharge Diagnosis (1) Peritonsillar abscess: Code(s): J36 - Peritonsillar abscess Status: Acute Assessment and Plan: Patient presented to OSH for throat pain. CT of the neck performed showing bilateral tonsillitis and tonsillar abscesses with peritonsillar inflammation and edema, right tonsillar abscess measuring 2.5 x 2.1 cm with smaller left tonsillar abscess 1.3 x 0.7 cm. Tonsillar enlargement resulting in moderate to severe oral pharyngeal airway narrowing. Patient was transferred to our facility. He was started on Unasyn 3 g q.6 hours scheduled and scheduled IV Solu-Medrol. Dr. Peters evaluated the patient and he did a flexible laryngoscope at bedside 11/01 and found right-sided pharyngeal edema, vallecular cyst versus collection of purulence as well as epiglottic edema. Repeat scope 11/02 showing improvement. Diet was advanced and steroids stopped 11/02. Repeat scope 11/03 showing overall improving edema of the supraglottic and pharyngeal airway; the patient continues to have some epiglottic and right-sided pharyngeal edema as well as a vallecular cyst or collection of purulence which is now increasing in size with the decreasing edema surrounding it. Patient was re-evaluated in the evening of 11/03 with repeat scope showing that the abscess was visualized and a 20 gauge needle was utilized to drain abscess. Bleeding was acceptable and pateitn toelrated the procedure well. It was felt the patietn could be discharged home this evening with continue abx for another 10 days. (2) Parapharyngeal abscess: Code(s): J39.0 - Retropharyngeal and parapharyngeal abscess Status: Acute Assessment and Plan: Plan as discussed above. (3) Sepsis: Qualifiers: Sepsis type: sepsis due to unspecified organism Sepsis acute organ dysfunction status: without acute organ dysfunction Qualified Code(s): A41.9 - Sepsis, unspecified organism Code(s): A41.9 - Sepsis, unspecified organism Status: Acute Assessment and Plan: Present on admission with leukocytosis and tachycardia related to the peritonsillar abscess. Symptoms improving. WBC better. BCx NGTD. (4) Essential hypertension: Code(s): I10 - Essential (primary) hypertension Status: Inactive Assessment and Plan: Patient's blood pressure was monitored closely. Blood pressure remained reasonably well controlled. We continued his lisinopril (5) Depression: Code(s): F32.9 - Major depressive disorder, single episode, unspecified Status: Inactive Assessment and Plan: Mood stable. We continued his bupropion. (6) Tobacco abuse: Code(s): Z72.0 - Tobacco use Status: Acute Assessment and Plan: Patient was educated about the benefits of smoking cessation. DS: Summary Hospital Course Reason for hospitalization: 45yo male transferred to our facility after being found to have a peritonsillar abscess. Please see H&P for details. Hospital Course: Please see above for details of hospital course. Time Spent with Patient Time attestation: Total time spent providing and/or coordinating discharge services: 35 minutes Time spent: Greater than 30 minutes Exam Narrative: Exam Narrative: AF 97.9 136/96 76 22 100% ra Gen - NARD Chest - CTA bilaterally, nml RR CV - RRR S1/S2 Abd - Soft, NT/ND, Positive BS Ext - No pedal edema Psych - antsy and annoyed Skin - Warm and dry DS: Data Data Completed and Pending Labs on day of discharge: Labs from last 24 hours 11/03/20 11/03/20 04:22 04:22 WBC 15.1 H RBC 4.21 L Hgb 11.3 L Hct 34.9 L MCV 82.9 MCH 26.8 MCHC 32.4 RDW 13.6 Plt Count 328 MPV 9.8 Sodium 140 Potassium 4.0 Chloride 106 Carbon Dioxide 33 H Anion Gap 1 L BUN 19 Creatinine 0.70 Est
[2020-11-03] MEDS: ACETAMINOPHEN ELIXIR 325 MG/10.15 ML UDC 650 MG PO (19:24)
--- NOTE | 2020-11-07 12:07 | PC.NURSE ---
BLood cx are negative. Dr. Yessica rubio.
== END 2020-11-03 19:25 | disposition home or self-care (01) | DRG 720 ==
LOC: ANHICU 11-02 13:51 → ANH3MEDSUR 11-03 18:41 → ANHICU 11-07 16:44
PROVIDERS: Internal Medicine Critical Care Medicine; Admitting Provider Internal Medicine; PCP Nurse Practitioner Family; Visit Provider Internal Medicine
DX: A41.9 Sepsis, unspecified organism (principal); J36 Peritonsillar abscess; F17.210 Nicotine dependence, cigarettes, uncomplicated; I10 Essential (primary) hypertension; F32.9 Major depressive disorder, single episode, unspecified; Z28.21 Immunization not carried out because of patient refusal; Z79.899 Other long term (current) drug therapy
CPT/HCPCS: 36415; 80048; 80069; 83735; 85025; 85027; 87040; A9270; J0295; J2270; J2930; J7030